=== PATIENT | female | born 2000 | race Hispanic/Latino ===

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

== ENCOUNTER → 2024-01-07 | Emergency (ER) | payer MEDICAID ==
[~2024-01-07] MED LIST: ACET-2247 PO
== END ==
LOC: EDH 19:02
DX: M79.601 Pain in right arm (principal); Z53.21 Procedure and treatment not carried out due to patient leaving prior to being seen by health care provider

== ENCOUNTER 2025-02-20 00:13 | Emergency (ER) | payer SELFPAY ==
[~2025-02-20] VITALS: Ht 162.6 cm; Wt 97.5 kg
--- NOTE | 2025-02-20 02:48 | ERN ---
ED Note History of Present Illness Stated Complaint: C/O RT EAR PAIN WITH THROAT PAIN Chief Complaint: Earache Time Seen by MD: 00:19 Time Seen by Midlevel: 00:19 Dictation: The patient is a 24-year-old female with no past medical history who presents to the emergency department with complaints of sore throat onset two weeks ago. Patient denies any fevers, runny nose, cough. Allergies: Coded Allergies: No Known Allergies (Unverified Allergy, Unknown, 12/26/21) Home Meds Active Scripts Ibuprofen (Ibuprofen) 600 Mg Tablet, 600 MG PO Q6H PRN for PAIN, #10 TAB Prov:TAVERAJL MENDEZ [employer] 02/20/25 Amoxicillin (Amoxicillin) 500 Mg Tablet, 1 TAB PO BID for 10 Days, #20 TAB 0 Refills Prov:JL TAVERA [employer]IST 02/20/25 Acetaminophen (Tylenol) 325 Mg Tablet, 650 MG PO Q4HPRN, #100 TAB Prov:JORDEN COYLE 12/26/21 Past Medical History Past Medical History: No Pertinent History Surgical History: None LMP: Feb 13, 2025 : 2 Para: 1 RN Note Reviewed/Agreed w/PFSH: Yes Review of System Dictation Constitutional: Negative for fever,chills, and weight loss Eyes: Negative for injury, pain,redness, and discharge ENT: Negative for injury,pain or swelling positive for sore throat Cardiovascular: Negative for chest pain, palpitations, and edema Respiratory: Negative for shortness of breath, cough, and wheezing, Abdomen/GI: Negative for abdominal pain, nausea, vomiting, diarrhea, and constipation Back: Negative for injury and pain : Negative for injury, bleeding and discharge MS/Extremity: Negative for injury and deformity Skin: Negative for rash, and discoloration Neuro: Negative for headache, weakness, numbness, tingling, and seizure Psych: Negative for suicide ideation, homicidal ideation, and hallucinations Initial Vital Sign VS Vital Signs Date Time Temp Pulse Resp B/P (MAP) Pulse Ox O2 Delivery O2 Flow Rate FiO2 02/20/25 00:15 97.7 81 20 125/82 97 Room Air Physical Exam Dictation Vital Signs reviewed General Appearance: Alert, oriented x 3, no acute distress, well developed, nourished. Head and Face: non-traumatic. Eyes: PERRL, pink conjunctivas, eyelid no trauma, anterior chamber with arcus senilis. Ears: Pinnas intact and no signs of trauma or erythema ear canals clear and no discharge TM no erythema Nose: No discharge, no bleeding. Oropharynx: Mouth normal, tongue pink. pharynx clear,no erythema, tonsils 3+ no exudates, no abscesses noted, mucous membrane moist , Neck: Supple, non-tender, no thyromegaly, no masses, no JVD, no bruits Breast:Deferred Chest:No tenderness, no crepitus, no paradoxical movement, no retractions Lungs:Clear, well-ventilated, symmetric, no rales, no wheezing, no rhonchi, no stridor, good breath sounds bilaterally Heart: Regular rate, regular rhythm, no murmur, no gallops Vascular: no peripheral edema, Abdomen: Soft, positive bowel sounds, nondistended, no guarding, nontender, no rebound, no masses no hepatomegaly, no splenomegaly, no Phan's sign, no hernias. Rectal: Deferred Genital: Deferred Neurological: Normal speech, motor function intact, sensory function intact Musculoskeletal: Neck nontender, full range of motion, back nontender, full range of motion, Extremities: nontender, full range of motion Skin: Color pink, dry, no turgor, no rash, no lacerations, no abrasions, no contusions. Lymphatic: Deferred Results (Laboratory/Radiology) Laboratory/Radiology Laboratory Tests Test 02/20/25 00:23 02/20/25 02:37 02/20/25 02:38 Group A Streptococcus Rapid negative (NEGATIVE) Influenza Type A Antigen Negative For Type A Influenza Type B Antigen Negative For Type B SARS-CoV-2 Antigen (Rapid) PRESUMPTIVE NEGATIVE Urine HCG, Qualitative NEGATIVE (NEGATIVE) Labs Reviewed?: Yes ED Course ED Course Orders Procedure Category Date Status Time Rapid (Group A Strep) LAB 02/20/25 Complete 00:21 Influenza Type A & B, LAB 02/20/25 Complete Rapid 00:39 Covid19 (Sars Antigen LAB 02/20/25 Complete Rapid) 00:39 ,Urine Test LAB 02/20/25 Complete 00:39 Dexamethasone 4mg/Ml PHA 02/20/25 Complete 1ml Vial (Dexametha 01:00 Ketorolac 60mg/2ml PHA 02/20/25 Complete (Toradol 60mg/2ml) 01:00 Current Medications Medications (Trade) Dose Ordered Sig/Tosha Route PRN Reason Start Time Stop Time Status Last Admin Dose Admin Dexamethasone Sodium Phosphate (dexaMETHasone 4MG/ML 1ML VIAL) 6 mg ONCE ONCE IM 02/20/25 01:00 02/20/25 01:01 DC 02/20/25 03:31 Ketorolac Tromethamine (toRADol 60MG/ 2ML) 60 mg ONCE ONCE IM 02/20/25 01:00 02/20/25 01:01 DC 02/20/25 03:31 Vital Signs Date Time Temp Pulse Resp B/P (MAP) Pulse Ox O2 Delivery O2 Flow Rate FiO2 02/20/25 00:15 97.7 81 20 125/82 97 Room Air Medical Decision Making MDM The patient is a 24-year-old female with no past medical history who presents to the emergency department with complaints of sore throat onset two weeks ago. Patient denies any fevers, runny nose, cough. Serology negative. Patient in no acute distress, no abscess noted, no uvula d eviation, no neck swelling. We will be discharged to follow up with PCP. Differential diagnosis: Strep throat, pharyngitis, otitis media, upper respiratory infection Need for hospitalization: Patient does not meet criteria for hospitalization. There are no social concerns with this patient. DX & DISP Disposition: Discharge Departure Impression: Primary Impression: Pharyngitis Condition: Stable Scripts Ibuprofen (Ibuprofen) 600 Mg Tablet 600 MG PO Q6H PRN for PAIN, #10 TAB Prov: JL TAVERA 02/20/25 Amoxicillin (Amoxicillin) 500 Mg Tablet 1 TAB PO BID for 10 Days, #20 TAB 0 Refills Prov: JL TAVERA 02/20/25 Additional Instructions: FOLLOW-UP WITH PRIMARY CARE PROVIDER IN 1 TO 2 DAYS. TAKE MEDICATIONS DIRECTED HERE IN THE EMERGENCY ROOM. OKAY TO CONTINUE HOME MEDICATIONS UNLESS OTHERWISE DISCUSSED DURING YOUR VISIT IN THE EMERGENCY ROOM TODAY. RETURN TO YOUR NEAREST EMERGENCY ROOM IF SYMPTOMS WORSEN OR IF THERE IS NO IMPROVEMENT. CALL 911 IF YOU NEED IMMEDIATE ASSISTANCE. TAKE TYLENOL OR MOTRIN [id number] NEEDED AND IF NO CONTRAINDICATIONS ARE PRESENT. INCREASE ORAL HYDRATION. A WOUND CULTURE OR URINE CULTURE WAS ORDERED HERE IN THE EMERGENCY ROOM DEPARTMENT PLEASE FOLLOW-UP WITH PRIMARY CARE PROVIDER AND ADVISE THEM TO GET REPEAT PORTS FROM OUR FACILITY. IF YOU HAD ANY ILIANA WRAP/SPLINTS THAT WERE APPLIED HERE, PLEASE DO NOT REMOVE THEM UNTIL YOU SEE YOUR PRIMARY CARE OR SPECIALTY. Referrals: SELF,REFERRAL (PCP) Time of Disposition: 03:22 I have reviewed the case, and I agree with, Diagnosis and Plan JL TAVERA [facility] Feb 20, 2025 02:48
[2025-02-20 03:15] LABS: INFLUENZA TYPE A Negative For Type A (NEGATIVE); INFLUENZA TYPE B Negative For Type B (NEGATIVE)
[2025-02-20] MEDS ORDERED: AMOX500T2 PO (03:23)
[2025-02-20] MEDS ORDERED: IBUP-2070 PO (03:23)
[2025-02-20] MEDS: ketOROlac 60 MG VIAL (30MG/ML) IM ONE (03:31)
[2025-02-20] MEDS: dexaMETHasone SOD PHOSPHATE 4 MG/ML 1ML VIAL IM ONE (03:31)
[2025-02-20 03:34] LABS: COVID19 (SARS ANTIGEN RAPID) PRESUMPTIVE NEGATIVE (NEGATIVE)
[2025-02-20 04:45] VITALS: BP 122/78; PULSE 78; RESP 16; TEMP 97.8; O2SAT 98
== END 2025-02-20 04:45 | disposition home or self-care (01) ==
LOC: EDH 00:13
DX: J02.9 Acute pharyngitis, unspecified (principal); Z20.822 Contact with and (suspected) exposure to COVID-19
CPT/HCPCS: 99284; 87426; 87880; 87804 ×2; 81025; 96372 ×2; J1100; J1885